=== PATIENT | male | born 1950 | race Two or more races ===

== ENCOUNTER 2019-03-19 11:06 | Emergency (ER) | payer MEDICARE ==
[~2019-03-19] VITALS: Ht 185.4 cm; Wt 65.0 kg
[2019-03-19] MEDS ORDERED: NITROGLYCERIN 0.4MG TABLET SL SL PRN (12:15)
[2019-03-19] MEDS ORDERED: ASPIRIN 81MG TABLET PO ONE (12:15)
[2019-03-19 13:09] LABS: EOSINOPHILS % 2.5 % (0.0-5.0); HEMATOCRIT. 47.6 % (42.0-52.0); HEMOGLOBIN. 15.8 g/dL (14.0-18.0); LYMPHOCYTES % 36.7 % (20.0-50.0); MEAN CORPUSCULAR HEMOGLOBIN 33.8 pg (28.0-32.0); MEAN CORPUSCULAR VOLUME 102.3 fL (80.0-94.0); MEAN PLATELET VOLUME 9.1 fl (7.4-10.4); NEUTROPHILS % 49.8 % (40.0-76.0); PLATELET 227 x1000/uL (130-400); RED BLOOD CELL COUNT 4.66 mill/uL (4.7-6.1); RED CELL DISTRIBUTION WIDTH 13.9 % (11.6-14.6)
[2019-03-19 13:12] LABS: CHLORIDE 105 mEq/L (98-107)
[2019-03-19 13:30] LABS: INR 1.3; PROTHROMBIN TIME 13.6 sec (9.6-11.0)
[2019-03-19] MEDS ORDERED: ENOXAPARIN 80MG/0.8ML SYR SUBCUT ONE (14:15)
[2019-03-19] MEDS ORDERED: WARFARIN SODIUM 4MG TABLET PO ONE (14:15)
[2019-03-19 14:21] VITALS: BP 137/73
== END 2019-03-19 14:58 | disposition left against medical advice (07) ==
LOC: ER 11:06 → CANBEDREQ 17:09
DX: I50.9 Heart failure, unspecified (principal); I48.91 Unspecified atrial fibrillation; F17.290 Nicotine dependence, other tobacco product, uncomplicated; Z95.2 Presence of prosthetic heart valve
CPT/HCPCS: 36415; 71045; 80053; 83880; 84484; 85025; 85610; 93005; 96372; 99284; 99406; J1650

== ENCOUNTER 2019-05-03 09:21 | Emergency (ER) | payer MEDICARE, MEDICAID ==
[~2019-05-03] VITALS: Ht 185.4 cm; Wt 77.0 kg
[2019-05-03] MEDS ORDERED: WARF4TAB40 PO (09:38)
[2019-05-03] MEDS ORDERED: SODIUM CHLORIDE 0.9% 1,000 ML IV ONE (11:05)
[2019-05-03] MEDS ORDERED: ATROPINE SULFATE 1MG/10ML SYR IV ONE (11:15)
[2019-05-03 11:21] LABS: BASOPHILS % 1.8 % (0.0-2.0); EOSINOPHILS % 2.7 % (0.0-5.0); HEMATOCRIT. 43.1 % (42.0-52.0); HEMOGLOBIN. 14.2 g/dL (14.0-18.0); LYMPHOCYTES % 38.8 % (20.0-50.0); MEAN CORPUSCULAR HEMOGLOBIN 33.1 pg (28.0-32.0); MEAN CORPUSCULAR VOLUME 100.1 fL (80.0-94.0); MEAN PLATELET VOLUME 10.2 fl (7.4-10.4); MONOCYTES % 11.5 % (2.0-8.0); NEUTROPHILS % 45.2 % (40.0-76.0); PLATELET 133 x1000/uL (130-400); RED BLOOD CELL COUNT 4.31 mill/uL (4.7-6.1); RED CELL DISTRIBUTION WIDTH 13.1 % (11.6-14.6)
[2019-05-03] MEDS ORDERED: DOPAMINE 400MG/250ML PREMIX 250 ML IV ONE (11:26)
[2019-05-03 11:27] LABS: CHLORIDE 104 mEq/L (98-107); INR 1.1; PROTHROMBIN TIME 11.6 sec (9.6-11.0)
[2019-05-03] MEDS ORDERED: DEXT 5%/0.45% NACL 1000ML 1,000 ML IV SCH (12:15)
[2019-05-03] MEDS ORDERED: IPRATROPIUM/ALBUTEROL 0.5-3(2.5)MG/3ML NEB HHN PRN (12:15)
[2019-05-03] MEDS ORDERED: SODIUM POLYSTYRENE SULFONATE 15 G/60 ML BOT PO ONE ×2 (12:15→12:45)
[2019-05-03] MEDS ORDERED: ACETAMINOPHEN 650MG/20.3ML UDC PO PRN (12:15)
[2019-05-03] MEDS ORDERED: HEPARIN 5000 UNITS/ML VIAL IV PRN ×2 (12:45)
[2019-05-03] MEDS ORDERED: HEPARIN 25,000 UNITS PREMIX 500 ML IV PRN (12:45)
[2019-05-03] MEDS ORDERED: HEPARIN 5000 UNITS/ML VIAL IV SCH (12:45)
[2019-05-03 12:53] LABS: T4 FREE 0.94 ng/dL (0.76-1.46)
[2019-05-03 13:00] VITALS: BP 129/72
[2019-05-03] MEDS ORDERED: NITROGLYCERIN OINT 1GM/INCH UDPKT TD ONE (13:15)
== END 2019-05-03 13:05 | disposition left against medical advice (07) ==
LOC: ER 09:21 → EDBEDREQ 11:41 → EDBEDREQSVC 11:41 → ER 13:05 → CANBEDREQ 13:58 → SUPCPDRO 18:05
DX: I44.2 Atrioventricular block, complete (principal); E87.5 Hyperkalemia; I00 Rheumatic fever without heart involvement; F12.10 Cannabis abuse, uncomplicated; F17.200 Nicotine dependence, unspecified, uncomplicated; I10 Essential (primary) hypertension; Z72.89 Other problems related to lifestyle; Z86.73 Personal history of transient ischemic attack (TIA), and cerebral infarction without residual deficits; Z98.890 Other specified postprocedural states
CPT/HCPCS: 36415; 71045; 80053; 83735; 83880; 84439; 84443; 84481; 84484; 85025; 85610; 93005; 93306; 99291; J0461; J1265

== ENCOUNTER 2020-04-22 11:06 | Emergency (ER) | payer MEDICARE, MEDICAID ==
[~2020-04-22] VITALS: Ht 188 cm; Wt 68.0 kg
[~2020-04-22 11:06] MED LIST: WARF4TAB40 PO
[2020-04-22 11:07] VITALS: BP 145/102
== END 2020-04-22 12:05 | disposition left against medical advice (07) ==
LOC: ER 11:51
DX: R07.9 Chest pain, unspecified (principal); I51.9 Heart disease, unspecified; Z95.0 Presence of cardiac pacemaker; Z79.01 Long term (current) use of anticoagulants; Z86.73 Personal history of transient ischemic attack (TIA), and cerebral infarction without residual deficits
CPT/HCPCS: 93005; 99283

== ENCOUNTER 2020-08-06 15:57 | Emergency (ER) | payer MEDICARE, MEDICAID ==
[~2020-08-06] VITALS: Ht 182.9 cm; Wt 72.0 kg
[2020-08-06] MEDS ORDERED: CLIN150C15 MT (17:05)
[2020-08-06] MEDS ORDERED: IBUPROFEN 600MG TABLET PO ONE (17:15)
[2020-08-06 17:23] VITALS: BP 125/81
== END 2020-08-06 17:24 | disposition home or self-care (01) ==
LOC: ER 15:57
DX: K04.01 Reversible pulpitis (principal); S02.5XXA Fracture of tooth (traumatic), initial encounter for closed fracture; I51.9 Heart disease, unspecified; X58.XXXA Exposure to other specified factors, initial encounter; Y93.9 Activity, unspecified; Y92.9 Unspecified place or not applicable; Z95.0 Presence of cardiac pacemaker; Z95.2 Presence of prosthetic heart valve; Z86.73 Personal history of transient ischemic attack (TIA), and cerebral infarction without residual deficits; Z79.01 Long term (current) use of anticoagulants
CPT/HCPCS: 99282